=== PATIENT | female | born 1995 | race Asian ===

== ENCOUNTER 2017-12-28 00:14 | Emergency (ER) | payer OTHER ==
[~2017-12-28] VITALS: Ht 165.1 cm; Wt 52.2 kg
[2017-12-28 00:23] VITALS: BP 115/80; PULSE 92; TEMP 36.7; O2SAT 94; Ht 165.1 cm; Wt 52.2 kg
[2017-12-28] MEDS ORDERED: ACETAMINOPHEN 325 MG TAB PO STA (00:43)
[2017-12-28] MEDS ORDERED: PHENAZOPYRIDINE HCL 200 MG TAB PO STA (00:43)
[2017-12-28] MEDS ORDERED: PHENAZOPYRIDINE HOME PACK 200 MG VIAL PO ONE (00:45)
[2017-12-28] MEDS ORDERED: CEFTRIAXONE SOD 350MG/ML 1 GM VIAL IM ONE (00:45)
[2017-12-28] MEDS ORDERED: PHEN-876 PO (00:53)
[2017-12-28] MEDS ORDERED: CEFD300C2 PO (00:53)
--- NOTE | 2017-12-28 14:56 | EMERGENCY ROOM VISIT NOTE ---
History Report prepared by Ernst: Kyle Schmitz Under the Supervision of: Dr. Shady Sorto M.D. First contact with patient: 00:36 Chief Complaint: URINARY SYMPTOMS Stated Complaint: FEEL BURN WHEN PEE,KIDNEY HURTS History of Present Illness The patient is a 22 year old female who presents to the Emergency Room with complaints of persistent burning urination beginning a few hours ago. The patient states that she did not have any urinary symptoms yesterday. She notes that she has had two UTIs in the past and believes that her current symptoms are another infection. She reports that her last UTI was last summer. She also complains of diaphoresis, back pain, and right-sided abdominal pain near her kidney. She denies any vaginal discharge, fever, and vomiting. The patient states that she has a history of syncope but does not have any other health problem and has not had any abdominal surgeries. Source of History: patient Onset: a few hours ago Position: other (urethra) Quality: burning Timing: other (persistent) Associated Symptoms: + diaphoresis, + abdominal pain (right-sided), + back pain, No fevers, No vomiting Note: The patient denies having vaginal discharge. Review of Systems See HPI for pertinent positives & negatives. A total of 10 systems reviewed and were otherwise negative. Past Medical & Surgical Medical Problems: (1) Syncope (2) UTI (urinary tract infection) Family History No pertinent family history stated. Social History Smoking Status: Never Smoker Marital Status: single Housing Status: lives with roommate Occupation Status: student Current/Historical Medications Scheduled Cefdinir (Omnicef), 300 MG PO Q12H Scheduled PRN Phenazopyridine HCl (Pyridium), 200 MG PO TID PRN for Frequency/Burning w/ Urination Allergies Coded Allergies: No Known Allergies (Unverified , 12/28/17) Physical Exam Vital Signs Date Time Temp Pulse Resp B/P (MAP) Pulse Ox O2 Delivery O2 Flow Rate FiO2 12/28/17 00:23 36.7 92 19 115/80 94 Room Air Physical Exam GENERAL: Patient is in no acute distress. HEENT: No acute trauma, normocephalic atraumatic, mucous membranes moist, no nasal congestion, no scleral icterus. NECK: No stridor, no adenopathy, no meningismus, trachea is midline. LUNGS: Clear to auscultation bilaterally, no wheeze, no rhonchi, breath sounds equal. HEART: Without murmurs gallops or rubs, regular rate and rhythm. BACK: No flank discomfort with percussion. ABDOMEN: Soft, nontender, bowel sounds positive, no hernias, no peritonitis. EXTREMITIES: No cyanosis or edema, full range of motion of all the joints without pain or difficulty, no signs for acute trauma. NEUROLOGIC: Oriented x 3, no acute motor or sensory deficits, no focal weakness. SKIN: No rash, no jaundice, no diaphoresis. Medical Decision & Procedures Laboratory Results Test 12/28/17 00:28 Urine Color YELLOW Urine Appearance CLOUDY (CLEAR) Urine pH 6.5 (4.5-7.5) Urine Specific [place] >= 1.030 (1.000-1.030) Urine Protein 2+ (NEG) Urine Glucose (UA) NEG (NEG) Urine Ketones 3+ (NEG) Urine Occult Blood 3+ (NEG) Urine Nitrite NEG (NEG) Urine Bilirubin NEG (NEG) Urine Urobilinogen NEG (NEG) Urine Leukocyte Esterase MODERATE (NEG) Urine RBC 0-4 /hpf (0-4) Urine WBC >30 /hpf (0-5) Urine Epithelial Cells 0-5 /lpf (0-5) Urine Bacteria NEG (NEG) Urine Test NEG (NEG) Laboratory results reviewed by me. Medications Administered Medications (Trade) Dose Ordered Sig/Davon Route Start Time Stop Time Status Last Admin Dose Admin Ceftriaxone Sodium (Rocephin Im) 1,000 mg NOW ONCE IM 12/28/17 00:45 12/28/17 00:46 DC 12/28/17 00:53 1,000 MG Phenazopyridine HCl (Pyridium Tab) 200 mg NOW STAT PO 12/28/17 00:43 12/28/17 00:45 DC 12/28/17 00:53 200 MG Acetaminophen (Tylenol Tab) 650 mg NOW STAT PO 12/28/17 00:43 12/28/17 00:45 DC 12/28/17 00:55 650 MG Phenazopyridine HCl (Phenazopyridine HCl 200MG Home Pack) 1 homepack UD ONCE PO 12/28/17 00:45 12/28/17 00:46 DC 12/28/17 00:55 1 HOMEPACK ED Course 0037: The patient was evaluated in room C10. A complete history and physical exam was performed. 0043: Acetaminophen 650mg PO, Pyridium Tab 200mg PO, Phenazopyridine HCl 1 homepack PO, Ceftriaxone Sodium 1000mg IM 0046: The patient's urine dip was positive for blood, nitrites, leukocytes, and ketones. Her testing was negative. 0115: Reevaluated the patient. Discussed results and discharge instructions: She verbalized understanding and agreement. The patient is ready for discharge. Medical Decision Differential diagnoses include: UTI, pyelonephritis, , dehydration, renal colic, and STD. Patient presents with urinary complaints and some discomfort towards the right kidney. There has been no vomiting or fever. She feels she has a UTI and the urine dip is consistent with urinary infection. testing is negative. The patient was given oral Pyridium and oral Tylenol. She received IM ceftriaxone. Patient is being discharged on Omnicef for the diagnosis of pyelonephritis. She should return here for fever, vomiting or worsening symptoms. A urine culture is pending. Medication Reconcilliation Current Medication List: was personally reviewed by me Blood Pressure Screening Patient's blood pressure: Normal blood pressure Blood pressure disposition: Did not require urgent referral Impression Primary Impression: Pyelonephritis Scribe Attestation The scribe's documentation has been prepared under my direction and personally reviewed by me in its entirety. I confirm that the note above accurately reflects all work, treatment, procedures, and medical decision making performed by me. Departure Information Dispostion Home / Self-Care Prescriptions Phenazopyridine HCl (Pyridium) 200 Mg Tab 200 MG PO TID Y for Frequency/Burning w/Urination, #6 TAB Prov: Shady Sorto M.D. 12/28/17 Cefdinir (OMNICEF) 300 Mg Cap 300 MG PO Q12H for 10 Days, #20 CAP Prov: Shady Sorto M.D. 12/28/17 Referrals No Doctor, Assigned (PCP) Forms HOME CARE DOCUMENTATION FORM, IMPORTANT VISIT INFORMATION Patient Instructions My [facility] Additional Instructions pyridium 3x per day for the burning--use this as needed for 3 days tylenol otc for pain omnicef 2x per day for 10 days lots of fluids rest return for vomiting, fever or worsening symptoms follow with [facility] for a recheck this week
== END 2017-12-28 01:09 | disposition home or self-care (01) ==
LOC: C.EDB 00:16 → C.EDC 01:09
DX: N12 Tubulo-interstitial nephritis, not specified as acute or chronic (principal); Z87.440 Personal history of urinary (tract) infections

== ENCOUNTER 2018-01-12 21:10 | Emergency (ER) | payer OTHER ==
[~2018-01-12] VITALS: Ht 163.8 cm; Wt 54.1 kg
[~2018-01-12 21:10] MED LIST: PHEN-876 PO
[2018-01-12 21:14] VITALS: TEMP 37.3; Ht 163.8 cm; Wt 54.1 kg
[2018-01-12] MEDS ORDERED: ONDANSETRON INJ 2 MG/ML 2 ML VIAL IV STA (22:07)
[2018-01-12] MEDS ORDERED: SODIUM CHLORIDE 0.9% 1000ML 1,000 ML IV ONE (22:15)
[2018-01-12] MEDS ORDERED: KETOROLAC TROMETHAMINE 15 MG/ML VIAL IV ONE (22:15)
[2018-01-12] MEDS ORDERED: OPTIRAY 320 IV PRN (22:15)
[2018-01-12 22:22] LABS: BASO % 0.3 %; BASO ABS # 0.02 K/uL (0-0.2); EOS % 4.5 %; EOS ABS # 0.31 K/uL (0-0.5); HEMATOCRIT 35.9 % (37-47); HEMOGLOBIN 12.1 g/dL (12.0-16.0); IG# 0.01 K/uL (0.00-0.02); LYMPH % 22.4 %; LYMPH ABS # 1.55 K/uL (1.2-3.4); MEAN CELL VOLUME 84.5 fL (80-100); MEAN CORPUSCULAR HEMOGLOBIN 28.5 pg (25-34); MEAN CORPUSCULAR HGB CONC 33.7 g/dl (32-36); MEAN PLATELET VOLUME 10.3 fL (7.4-10.4); MONO % 8.4 %; MONO ABS # 0.58 K/uL (0.11-0.59); NEUT % 64.3 %; NEUT ABS # 4.44 K/uL (1.4-6.5); PLATELET COUNT 204 K/uL (130-400); RED CELL DISTRIBUTION WIDTH CV 13.3 % (11.5-14.5); RED CELL DISTRIBUTION WIDTH SD 40.3 fL (36.4-46.3); WHITE BLOOD COUNT 6.91 K/uL (4.8-10.8)
[2018-01-12 22:36] LABS: ALBUMIN 3.5 gm/dl (3.4-5.0); CALCIUM 8.4 mg/dl (8.5-10.1); CREATININE 0.68 mg/dl (0.60-1.20); POTASSIUM 3.4 mmol/L (3.5-5.1)
[2018-01-12 22:39] LABS: TOTAL PROTEIN 6.7 gm/dl (6.4-8.2)
[2018-01-13 01:56] VITALS: BP 107/70; PULSE 56; O2SAT 97
--- NOTE | 2018-01-13 05:06 | EMERGENCY ROOM VISIT NOTE ---
History First contact with patient: 21:52 Chief Complaint: BACK PAIN Stated Complaint: INFLAMMATION, LOWER BACK PAIN, KIDNEY PAIN History of Present Illness The patient is a 22 year old female who presents to the Emergency Room with complaints of left-sided back pain and lower bilateral abdominal pain. The patient states her symptoms have been worsening over the past 2 or 3 days. She was initially seen here at this facility about 2 weeks ago where she was diagnosed with pyelonephritis. She was given antibiotics and felt significantly better after this. She states that her boyfriend then became sick , and she did have some cold-like symptoms for the past few days. she is not having fevers, chills, chest pain, chest tightness, shortness of breath, or upper abdominal pain. No difficulty using the bathroom, however she is concerned that she may have a return of her kidney infection because of the location of her pain. Movement does not seem to improve or worsen her symptoms. She has been taking NyQuil for the cold symptoms, but no other medications. She rates her current discomfort a 5/10. She denies chance of . Review of Systems More than 10 systems were reviewed and otherwise negative with the exception of history of present illness. Past Medical/Surgical History Medical Problems: (1) Syncope (2) UTI (urinary tract infection) Social History Smoking Status: Never Smoker Marital Status: single Housing Status: lives with roommate Occupation Status: student Current/Historical Medications No Active Prescriptions or Reported Meds Physical Exam Vital Signs Date Time Temp Pulse Resp B/P (MAP) Pulse Ox O2 Delivery O2 Flow Rate FiO2 01/13/18 01:56 56 16 107/70 97 01/13/18 01:17 69 16 103/65 97 Room Air 01/12/18 23:46 67 16 95/66 98 Room Air 01/12/18 22:47 61 16 110/69 99 Room Air 01/12/18 21:14 37.3 73 16 98/72 95 Room Air Physical Exam VITALS: Vitals are noted on the nurse's note and reviewed by myself. Vital signs stable. GENERAL: Well-developed, well-nourished, female, who is in no acute distress and resting comfortably. Patient is cooperative with the examination. HEAD: Normocephalic atraumatic. NECK: Supple without nuchal rigidity. No lymphadenopathy. No thyromegaly. Cervical spine is nontender. HEART: Regular rate and rhythm without murmurs gallops or rubs. LUNGS: Clear to auscultation bilaterally without wheezes, rales or rhonchi. No retractions or accessory muscle use. ABDOMEN: Positive normal bowel sounds x 4. Soft, nontender, without masses or organomegaly. No guarding or rebound tenderness. No CVA tenderness. MUSCULOSKELETAL: No muscle atrophy, erythema, or edema noted. Full range of motion in all extremities. Mild tenderness appreciated throughout the midthoracic spine and low lumbar spine. No saddle paresthesias. No rash or lesions. NEURO: Patient was alert and oriented to person place and time. CN II through XII grossly intact. No focal neurological deficits. Deep tendon reflexes 2+ throughout. SKIN: The skin was without rashes, erythema, edema, or bruising. Capillary refill less than 2 seconds. Medical Decision & Procedures ER Provider Diagnostic Interpretation: Preliminary Findings Only See Final Report For Complete Findings CT ABDOMEN & PELVIS With Contrast: No evidence of urolithiasis or hydronephrosis. Bilateral kidneys demonstrate symmetric enhancement. No findings to suggest acute appendicitis. No evidence of free air or free fluid. Mild nonspecific fluid-filled loops of small bowel. May be normal variant versus mild enteritis. Laboratory Results 01/12/18 21:57 Red Blood Count 4.25, Mean Corpuscular Volume 84.5, Mean Corpuscular Hemoglobin 28.5, Mean Corpuscular Hemoglobin Concent 33.7, Mean Platelet Volume 10.3, Neutrophils (%) (Auto) 64.3, Lymphocytes (%) (Auto) 22.4, Monocytes (%) (Auto) 8.4, Eosinophils (%) (Auto) 4.5, Basophils (%) (Auto) 0.3, Neutrophils # (Auto) 4.44, Lymphocytes # (Auto) 1.55, Monocytes # (Auto) 0.58, Eosinophils # (Auto) 0.31, Basophils # (Auto) 0.02 01/12/18 21:57 Test 01/12/18 21:57 01/12/18 21:58 White Blood Count 6.91 K/uL (4.8-10.8) Red Blood Count 4.25 M/uL (4.2-5.4) Hemoglobin 12.1 g/dL (12.0-16.0) Hematocrit 35.9 % (37-47) Mean Corpuscular Volume 84.5 fL (80-100) Mean Corpuscular Hemoglobin 28.5 pg (25-34) Mean Corpuscular Hemoglobin Concent 33.7 g/dl (32-36) Platelet Count 204 K/uL (130-400) Mean Platelet Volume 10.3 fL (7.4-10.4) Neutrophils (%) (Auto) 64.3 % Lymphocytes (%) (Auto) 22.4 % Monocytes (%) (Auto) 8.4 % Eosinophils (%) (Auto) 4.5 % Basophils (%) (Auto) 0.3 % Neutrophils # (Auto) 4.44 K/uL (1.4-6.5) Lymphocytes # (Auto) 1.55 K/uL (1.2-3.4) Monocytes # (Auto) 0.58 K/uL (0.11-0.59) Eosinophils # (Auto) 0.31 K/uL (0-0.5) Basophils # (Auto) 0.02 K/uL (0-0.2) RDW Standard Deviation 40.3 fL (36.4-46.3) RDW Coefficient of Variation 13.3 % (11.5-14.5) Immature Granulocyte % (Auto) 0.1 % Immature Granulocyte # (Auto) 0.01 K/uL (0.00-0.02) Anion Gap 5.0 mmol/L (3-11) Est Creatinine Clear Calc Drug Dose 111.8 ml/min Estimated GFR () 144.9 Estimated GFR (Non- 125.0 BUN/Creatinine Ratio 7.5 (10-20) Calcium Level 8.4 mg/dl (8.5-10.1) Total Bilirubin 0.2 mg/dl (0.2-1) Aspartate Amino Transf (AST/SGOT) 14 U/L (15-37) Alanine Aminotransferase (ALT/SGPT) 18 U/L (12-78) Alkaline Phosphatase 53 U/L (45-117) Total Protein 6.7 gm/dl (6.4-8.2) Albumin 3.5 gm/dl (3.4-5.0) Globulin 3.2 gm/dl (2.5-4.0) Albumin/Globulin Ratio 1.1 (0.9-2) Lipase 215 U/L (73-393) Urine Color YELLOW Urine Appearance CLEAR (CLEAR) Urine pH 8.0 (4.5-7.5) Urine Specific [place] 1.020 (1.000-1.030) Urine Protein NEG (NEG) Urine Glucose (UA) NEG (NEG) Urine Ketones NEG (NEG) Urine Occult Blood NEG (NEG) Urine Nitrite NEG (NEG) Urine Bilirubin NEG (NEG) Urine Urobilinogen NEG (NEG) Urine Leukocyte Esterase NEG (NEG) Urine Test NEG (NEG) Medications Administered Medications (Trade) Dose Ordered Sig/Davon Route Start Time Stop Time Status Last Admin Dose Admin Sodium Chloride 1,000 ml @ 999 mls/hr Q1H1M ONCE IV 01/12/18 22:15 01/12/18 23:15 DC 01/12/18 22:49 999 MLS/HR Ondansetron HCl (Zofran Inj) 4 mg NOW STAT IV 01/12/18 22:07 01/12/18 22:09 DC 01/12/18 22:49 4 MG Ketorolac Tromethamine (Toradol Inj) 15 mg NOW ONCE IV 01/12/18 22:15 01/12/18 22:16 DC 01/12/18 22:50 15 MG ED Course Physical exam and history were performed. Nursing notes, EMR, and Medication List were personally reviewed. Patient appears to have vague flank and abdominal pain for the past few days. She was seen here previously for a pyelonephritis, however it seems that the symptoms significantly improved after treatment. I did review past cultures, and the patient appears to have been treated appropriately. She is not toxic on examination. IV access was established and labs were obtained. Patient was hydrated with normal saline. She was medicated as above. Because of the symptoms I did elect to perform a CT scan. The patient's blood work is as above and was reviewed. She does not have a significantly elevated white blood cell count, gross anemia, bandemia, or significant electrolyte imbalance. Lipase and transaminases are not diagnostic. Urine is without obvious infection. She is not . CT scan is as above and was reviewed by myself and radiology as showing no significant acute process. There may be some signs of an enteritis, which may correlate with her recent cold symptoms to suggest a viral etiology. On reevaluation the patient continues to be with a non-surgical type abdomen. She is very comfortable and watching television in her ER room. The patient appears well for discharge home. I suspect her symptoms will improve over the next few days with conservative measures. She will need close follow-up by [facility] , and I will ask her to follow-up in a short interval for this. The patient was pleased with this plan and voiced understanding. The chart was completed utilizing [email or web address] Speech Voice Recognition Software. Grammatical errors, random word insertions, pronoun errors, and incomplete sentences are an occasional consequence of this system due to software limitations, ambient noise, and hardware issues. Any formal questions or concerns about the content, text, or information contained within the body of this dictation should be directly addressed to the provider for clarification. . Medical Decision Differential diagnosis: Etiologies such as appendicitis, diverticulitis, PUD, biliary pathology, UTI, pancreatitis, obstruction, mesenteric ischemia, aortic pathology, infections, inflammatory bowel disease, renal colic, as well as others were entertained. Impression Primary Impression: Abdominal pain Departure Information Dispostion Home / Self-Care Condition GOOD Prescriptions No Active Prescriptions or Reported Meds Forms HOME CARE DOCUMENTATION FORM, IMPORTANT VISIT INFORMATION Patient Instructions My [facility] Additional Instructions You were seen and evaluated today on an emergency basis only. This is not a substitute for, or an effort to provide, complete comprehensive medical care. It is not possible to recognize and treat all injuries or illnesses in a single emergency department visit. For this reason it is recommended that you followup with [facility] in the next 2-3 days for recheck. For baseline pain relief you may alternate ibuprofen and acetaminophen every 4 hours for pain control. Take 600 mg ibuprofen (Advil) and then 4 hours later take 1000 mg acetaminophen (Tylenol). Do not take more than 3000 mg acetaminophen in a single day. You are welcome to return to the emergency department anytime with new, worsening, or concerning symptoms.
--- NOTE | 2018-01-13 07:09 | DIAGNOSTIC IMAGING REPORT ---
ABD/PELVIS IV AND ORAL CONT CT DOSE: 266.45 mGy.cm HISTORY: Pain. Flank pain. Back/low abd pain. Recent UTI/Pyelo vs other TECHNIQUE: Multiaxial CT images of the abdomen and pelvis were performed following the use of intravenous and oral contrast. A dose lowering technique was utilized adhering to the principles of ALARA. COMPARISON STUDY: None. FINDINGS: The lung bases are clear. The liver, spleen, gallbladder, pancreas, kidneys, and adrenal glands are within normal limits. No bowel wall thickening or obstruction. The pelvic organs are unremarkable. No suspicious lytic or blastic osseous lesions. Minimal nonobstructive ileus IMPRESSION: No significant abnormality identified within the abdomen or pelvis. Minimal nonobstructive ileus The above report was generated using voice recognition software. It may contain grammatical, syntax or spelling errors. Electronically signed by: Shantanu Guan M.D. 01/13/2018 7:08 AM Dictated Date/Time: 01/13/2018 7:06 AM
== END 2018-01-13 01:58 | disposition home or self-care (01) ==
LOC: C.EDB 21:10
DX: R10.9 Unspecified abdominal pain (principal); R55 Syncope and collapse